=== PATIENT | male | born 1955 | race Caucasian/White ===

== ENCOUNTER 2025-09-03 14:21 | Outpatient (CLI) | payer MEDICARE ==
--- NOTE | 2025-09-03 15:45 | RADIOLOGY REPORT ---
Procedure: CT CT CHEST LOW DOSE Reason for study/Clinical History: HISTORY OF TOBACCO USE,ENCNTR SCREEN FOR MALIGNANT NEOPLASM OF RESPIRATORY COMPARISON: None TECHNIQUE: Multidetector CT of the chest was performed from the lung apices to the upper abdomen without the use of intravenous contract. Axial, coronal and sagittal multiplanar reformats were performed. Radiation Dose Information: CT Dose: CTDI volume is 2.8 mGy. Dose-length product is 108.79 mGy*cm The dose indicators for CT are the volume Computed Tomography (CT) Dose Index (CTDIvol) and the Dose Length Product (DLP), and are measured in units of mGy and mGy-cm, respectively. These indicators are not patient dose, but values generated from the CT scanner acquisition factors. The report includes radiation exposure data for exposures received during this examination. FINDINGS: Lower neck: Normal thyroid. Lungs: Moderate to severe centrilobular emphysema throughout both lungs. Mild bronchial wall thickening. Innumerable small ill defined nodular densities throughout both lungs. More discrete solid right lower lobe subpleural nodule measuring 6 mm (series 2, image 154). Subsolid nodule measuring 5 mm (image 41). No suspicious pulmonary nodules Heart/Vascular Structures: Normal heart size. No pericardial effusion. Coronary calcifications. Lymph Nodes: No adenopathy Pleura: No pleural effusion or significant pneumothorax. Musculoskeletal: No acute osseous abnormality. Soft tissues: Normal. Upper abdomen: Limited portions of the upper abdomen are unremarkable. IMPRESSION: Moderate to severe centrilobular emphysema throughout both lungs. Innumerable small ill defined mixed solid and ground glass nodules throughout both lungs, favored infectious/inflammatory. Few solid appearing pulmonary nodules measuring up to 6 mm. LUNG RADS Category 3: 6-month follow-up with LDCT
== END 2025-09-03 23:59 | disposition home or self-care (01) ==
LOC: RAD 14:21
PROVIDERS: ATTEND Nurse Practitioner Family
DX: Z12.2 Encounter for screening for malignant neoplasm of respiratory organs (principal); R91.8 Other nonspecific abnormal finding of lung field; J43.2 Centrilobular emphysema; Z87.891 Personal history of nicotine dependence
CPT/HCPCS: 71271